=== PATIENT | male | born 2000 | race African-American/Black ===

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

== ENCOUNTER 2021-01-31 11:02 | Emergency (ER) | payer OTHER, MEDICAID ==
[~2021-01-31] VITALS: Ht 188 cm; Wt 87.1 kg
[2021-01-31 11:52] VITALS: BP 139/85
== END 2021-01-31 12:47 | disposition home or self-care (01) ==
LOC: ER 11:02
DX: S43.402A Unspecified sprain of left shoulder joint, initial encounter (principal); F17.210 Nicotine dependence, cigarettes, uncomplicated; Y04.0XXA Assault by unarmed brawl or fight, initial encounter; Y93.89 Activity, other specified; Y92.89 Other specified places as the place of occurrence of the external cause; Y99.8 Other external cause status
CPT/HCPCS: 73030

== ENCOUNTER 2021-06-14 11:02 | Emergency (ER) | payer MEDICAID, OTHER ==
[~2021-06-14] VITALS: Ht 188 cm; Wt 90.7 kg
[2021-06-14 11:25] VITALS: BP 119/72
[2021-06-14] MEDS ORDERED: cefTRIAXone SOD 1,000 MG VL IM ONE (11:45)
[2021-06-14 12:09] LABS: Urine Bacteria NONE SEEN /hpf (None Seen); Urine Blood 3+ /uL (Negative); Urine Mucus FEW (None Seen); Urine Specific Gravity 1.026 (1.001-1.035); Urine WBC 1078 /hpf (0 - 3)
== END 2021-06-14 12:03 | disposition home or self-care (01) ==
LOC: ER 11:02
DX: A54.01 Gonococcal cystitis and urethritis, unspecified (principal); F17.210 Nicotine dependence, cigarettes, uncomplicated; Z20.2 Contact with and (suspected) exposure to infections with a predominantly sexual mode of transmission
CPT/HCPCS: 81001; 96372; 99283; J0696